=== PATIENT | male | born 1975 | race Hispanic/Latino ===

== ENCOUNTER 2024-04-30 13:58 | Emergency (ER) | payer OTHER ==
[~2024-04-30] VITALS: Ht 172.7 cm; Wt 117.7 kg
[2024-04-30] MEDS ORDERED: IOPAMIDOL 370 MG/ML 100 ML INFUS..BTL INJ ONE (14:37)
[2024-04-30] MEDS ORDERED: ROSUVASTATIN CA20 MG (14:56)
[2024-04-30] MEDS ORDERED: TESTOSTERO30 MG/1.5 (14:56)
[2024-04-30] MEDS ORDERED: BENICAR HCT 201 EACH (14:56)
[2024-04-30] MEDS ORDERED: ACETAMINOPHEN 325 MG TAB ONE (15:17)
[2024-04-30] MEDS: SODIUM CHLORIDE 0.9% 1000ML 1,000 ML IV SCH (15:19)
[2024-04-30] MEDS: ACETAMINOPHEN 325 MG TAB PO ONE (15:29)
[2024-04-30 17:16] VITALS: PULSE 68; RESP 16; TEMP 98.3; O2SAT 99
== END 2024-04-30 17:16 | disposition home or self-care (01) ==
LOC: FSED 14:02
DX: H53.8 Other visual disturbances (principal); G45.9 Transient cerebral ischemic attack, unspecified; R41.3 Other amnesia; R51.9 Headache, unspecified; I10 Essential (primary) hypertension; E78.5 Hyperlipidemia, unspecified; Z56.3 Stressful work schedule
CPT/HCPCS: 70496; 70498; 71260; 80053; 80076; 81003; 82553; 83880; 85025; 85379; 99284; J7030; Q9967; 93005